=== PATIENT | female | born 1960 | race Two or more races ===

== ENCOUNTER 2018-10-31 18:05 | Emergency (ER) | payer OTHER ==
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
[2018-10-31] MEDS ORDERED: IBUPROFEN 800 MG TABLET PO ONE (20:22)
--- NOTE | 2018-10-31 20:31 | RADIOLOGY REPORT (SQ) ---
EXAM DESCRIPTION: XR ANKLE 3 OR MORE VIEWS COMPLETED DATE/TME: 10/31/2018 19:41 CLINICAL HISTORY: 57 years, Female, right ankle pain COMPARISON: None. NUMBER OF VIEWS: Three views TECHNIQUE: Frontal, oblique, and lateral radiographs were obtained. LIMITATIONS: None. FINDINGS: Visualized osseous structures are normal in appearance. Joint spaces are well-maintained. No acute fracture or dislocation is evident. IMPRESSION: No acute osseous anomaly. copyright 2010 [email or web address]- All Rights Reserved
[2018-10-31 20:54] VITALS: BP 150/71
== END 2018-10-31 20:54 | disposition home or self-care (01) ==
LOC: EDSEX 18:05 → ER 18:05
DX: S93.401A Sprain of unspecified ligament of right ankle, initial encounter (principal); M25.571 Pain in right ankle and joints of right foot; W01.10XA Fall on same level from slipping, tripping and stumbling with subsequent striking against unspecified object, initial encounter; Z90.49 Acquired absence of other specified parts of digestive tract
CPT/HCPCS: 73610; L1902; 99283; L4350